=== PATIENT | male | born 2000 ===

== ENCOUNTER → 2021-12-02 | Outpatient (CLI) | payer OTHER ==
[2022-01-03 17:11] LABS: ANABASINE <1 ng/mL (.); COTININE >1000.0 ng/mL (.); NICOTINE 122 ng/mL (.)
== END | disposition home or self-care (01) ==
LOC: LAB SHORT 09:26 → LAB 09:26
PROVIDERS: Obstetrics & Gynecology
DX: Z72.0 Tobacco use (principal)
CPT/HCPCS: G0480

== ENCOUNTER → 2025-07-03 | Outpatient (CLI) | payer OTHER | LOC: LAB SHORT 19:00 → LAB 19:00 | DX: Z71.1 Person with feared health complaint in whom no diagnosis is made (principal) | CPT/HCPCS: 87081 ==